=== PATIENT | male | born 1995 | race Caucasian/White ===

== ENCOUNTER 2017-04-27 14:50 | Emergency (ER) | payer OTHER ==
[2017-04-27 15:32] VITALS: BP 112/73; PULSE 95; RESP 16; TEMP 98.5; O2SAT 99
== END 2017-04-27 16:00 | disposition left against medical advice (07) ==
DX: Z53.21 Procedure and treatment not carried out due to patient leaving prior to being seen by health care provider (principal)

== ENCOUNTER 2017-06-12 08:53 | Emergency (ER) | payer OTHER ==
[2017-06-12] MEDS ORDERED: LORazepam 2 MG/ML INJ IVP ONE (09:00)
--- NOTE | 2017-06-12 09:05 | EDPHY ---
H & P Time Seen by Provider: 06/12/17 08:53 HPI/ROS: CHIEF COMPLAINT: Grand mal seizure HISTORY OF PRESENT ILLNESS: Patient is a history of epilepsy and isn't quite sure when he was diagnosed but says it was maybe in his teenage years. He has not had a seizure in several years and his neurologist Dr. Jameel Aleman in [place] has been weaning off his Depakote. His last dose of oral Depakote was about 3 weeks ago. He did not sleep well last night but was not up all night. No recent drugs or stimulants. No recent illnesses. Today he was at the [facility] service to get a flu shot when he was witnessed to have a full body tonic-clonic seizure. He arrives with some myoclonic jerks but is awake and talking. EMS said he was confused when they arrived. Did not bite his tongue and no incontinence. Denies injury. REVIEW OF SYSTEMS: Eye: no change in vision ENT: no sore throat Cardiac: no chest pain or syncope Pulmonary: no cough or SOB Abdomen: no vomiting, diarrhea, abdominal pain Musculoskeletal: no back pain Skin: no rash Neuro: no headache Constitutional: no fever : no urinary symptoms A comprehensive 10 point review of systems is otherwise negative aside from elements mentioned in the history of present illness. PAST MEDICAL HISTORY: Epilepsy as above Social history: Denies cocaine or amphetamines, nonsmoker General Appearance: Alert and conversant, cooperative. Eyes: No scleral icterus. No tongue laceration or abrasion ENT, Mouth: Normal mucous membranes. Respiratory: Normal respiratory effort, breath sounds equal, lungs are clear to auscultation. Cardiovascular: Regular rate and rhythm. Gastrointestinal: Abdomen is soft and non tender. Neurological: Alert and oriented x3. Normally conversant. Face symmetric, normal movement and sensation in all extremities. He does have some myoclonic jerking especially in his upper extremities. Skin: Warm and dry, no rashes. Musculoskeletal: No peripheral edema and no joint swelling. No extremity bony tenderness, no spinal tenderness, no stiff neck. Psychiatric: Not agitated. Emergency Department course/MDM: Ativan 1 mg IV, call is placed to his neurologist in [place]. 910: Discussed Dr. Louis for Ash, we reviewed his presentation and she reviewed his chart. She recommends restarting Depakote ER 500 mg orally q.day and will talk to his neurologist this week. He has Depakote ER 500 mg tablets at home. She recommends loading him with 20 milligrams/kilos IV of Depakote in the ER. Ambulatory after Depakote loading. Warned no driving until cleared by his neurologist. Smoking Status: Never smoked Constitutional: Initial Vital Signs Temperature (C) 37.2 C 06/12/17 08:56 Heart Rate 122 H 06/12/17 08:56 Respiratory Rate 14 06/12/17 08:56 Blood Pressure 134/76 H 06/12/17 08:56 O2 Sat (%) 98 06/12/17 08:56 O2 Delivery Mode Room Air Allergies/Adverse Reactions: No Known Allergies Allergy (Unverified 06/12/17 08:59) Home Medications: Medication Instructions Recorded Depakote ER 250 MG (*) 04/27/17 Medical Decision Making - Diagnostics EKG Interpretation: 12-lead EKG interpreted by me; official reading is in trace master. My interpretation is sinus tachycardia rate 127 with left posterior fascicular block. Differential Diagnosis: Differential diagnosis considered for a seizure including but not limited to electrolyte abnormality, alcohol withdrawal, medication noncompliance, head injury, and breakthrough seizure. - Data Points Laboratory Results: Laboratory Results 06/12/17 08:55 06/12/17 08:55 06/12/17 06/12/17 08:55 08:55 WBC 7.34 10^3/uL 10^3/uL (3.80-9.50) RBC 5.24 10^6/uL 10^6/uL (4.40-6.38) Hgb 15.7 g/dL g/dL (13.7-17.5) Hct 44.8 % % (40.0-51.0) MCV 85.5 fL fL (81.5-99.8) MCH 30.0 pg pg (27.9-34.1) MCHC 35.0 g/dL g/dL (32.4-36.7) RDW 12.5 % % (11.5-15.2) Plt Count 348 10^3/uL 10^3/uL (150-400) MPV 9.1 fL fL (8.7-11.7) Neut % (Auto) 39.5 % % (39.3-74.2) Lymph % (Auto) 50.7 % H % (15.0-45.0) [place] % (Auto) 7.6 % % (4.5-13.0) Eos % (Auto) 1.4 % % (0.6-7.6) Baso % (Auto) 0.5 % % (0.3-1.7) Nucleat RBC Rel Count 0.0 % % (0.0-0.2) Absolute Neuts (auto) 2.90 10^3/uL 10^3/uL (1.70-6.50) Absolute Lymphs (auto) 3.72 10^3/uL H 10^3/uL (1.00-3.00) Absolute Monos (auto) 0.56 10^3/uL 10^3/uL (0.30-0.80) Absolute Eos (auto) 0.10 10^3/uL 10^3/uL (0.03-0.40) Absolute Basos (auto) 0.04 10^3/uL 10^3/uL (0.02-0.10) Absolute Nucleated RBC 0.00 10^3/uL 10^3/uL (0-0.01) Immature Gran % 0.3 % % (0.0-1.1) Immature Gran # 0.02 10^3/uL 10^3/uL (0.00-0.10) Sodium 144 mEq/L mEq/L (134-144) Potassium 3.9 mEq/L mEq/L (3.5-5.2) Chloride 104 mEq/L mEq/L (97-110) Carbon Dioxide 16 mEq/l L mEq/l (22-31) Anion Gap 24 mEq/L H mEq/L (8-16) BUN 16 mg/dL mg/dL (7-23) Creatinine 1.0 mg/dL mg/dL (0.7-1.3) Estimated GFR > 60 Glucose 96 mg/dL mg/dL (70-100) Calcium 9.4 mg/dL mg/dL (8.5-10.4) Medications Given: Discontinued Medications Valproate Sodium 1,200 mg/ (Dextrose) 62 mls @ 55 mls/hr IV EDNOW ONE Stop: 06/12/17 10:21 Last Admin: 06/12/17 10:18 Dose: 62 mls Lorazepam (Ativan Injection) 1 mg IVP EDNOW ONE Stop: 06/12/17 09:01 Last Admin: 06/12/17 09:04 Dose: 1 mg Departure - Departure Disposition: Home, Routine, Self-Care Clinical Impression: Seizure disorder Condition: Good Instructions: Epilepsy (ED) Additional Instructions: Restart your Depakote 500 mg extended release orally once per day, 1st dose tonight. No driving. Call your neurologist today or tomorrow to discuss Depakote dosing, and when to increase it in the next couple of days. Referrals: Patient,NotPresent [Unknown] - As per Instructions (Call your neurologist Dr. Jameel Aleman today to arrange followup this week.) Stand Alone Forms: School Excuse
--- NOTE | 2017-06-12 09:10 | CPEKG ---
Heart Rate: 127 RR Interval: 472 P-R Interval: 91 QRSD Interval: 86 QT Interval: 332 QTC Interval: 483 P [place]: 0 QRS [place]: 117 T Wave [place]: 11 EKG Severity - ABNORMAL ECG - EKG Impression: SINUS TACHYCARDIA EKG Impression: LEFT POSTERIOR FASCICULAR BLOCK EKG Impression: BORDERLINE PROLONGED QT INTERVAL Electronically Signed By: Kane Lockett 12-Jun-2017 09:32:16
[2017-06-12] MEDS ORDERED: VALPROATE SODIUM IV ONE (09:14)
[2017-06-12] MEDS ORDERED: D5W IV ONE (09:14)
[2017-06-12 09:20] LABS: PLATELET COUNT 348 10^3/uL (150-400)
[2017-06-12 11:58] VITALS: BP 94/84; PULSE 107; RESP 14; O2SAT 96
[2017-06-12 12:05] VITALS: TEMP 98.8
== END 2017-06-12 12:05 | disposition home or self-care (01) ==
LOC: EDUNIT#
DX: G40.909 Epilepsy, unspecified, not intractable, without status epilepticus (principal)
CPT/HCPCS: 96365; J2060

== ENCOUNTER 2017-06-18 12:59 | Emergency (ER) | payer OTHER ==
[2017-06-18] MEDS ORDERED: NS 1,000 ML IV ONE (13:19)
[2017-06-18] MEDS ORDERED: levETIRAcetam 1,000 MG in NS 100 ML IV ONE (13:21)
[2017-06-18 13:27] LABS: PLATELET COUNT 334 10^3/uL (150-400)
[2017-06-18] MEDS ORDERED: ONDANSETRON 4 MG/2 ML VIAL IVP ONE (13:37)
--- NOTE | 2017-06-18 13:38 | EDPHY ---
H & P Time Seen by Provider: 06/18/17 13:13 HPI/ROS: HPI Seizure, facial injuries. 22-year-old male by ambulance. This patient has a history of generalized tonic- clonic seizures. He has had seizures since the age of 16. He has been on Depakote. He reports he has not had seizures in the last 6 months and his neurologist has weaned him off his Depakote. He is not taking Depakote about a month. This morning he had a tonic-clonic seizure. He then took a reported 2000 mg of Depakote extended-release. Then prior to arrival he had another tonic-clonic seizure fell and hit his face on the floor sustaining a left upper lip laceration any dental injury. ROS: Constitutional: No fever, no chills. No weakness. He feels foggy in the head. Eyes: No discharge. No changes in vision. ENT: No sore throat. No nasal congestion or rhinorrhea. Respiratory: No cough. No shortness of breath. Cardiac: No chest pain, no palpitations. Gastrointestinal: No abdominal pain, no vomiting, no diarrhea. Genitourinary: No hematuria. No dysuria or increased frequency with urination. Musculoskeletal: No back pain. No neck pain. No myalgias or arthralgias. Skin: No rashes. Facial laceration. Neurological: No headache. No focal weakness or altered sensation. As above. Past medical history: Seizure disorder. As above. [facility] has not worked for him in the past. He has a neurologist named Dr. Ash mcgee in [place]. Review of the patient's medical records indicates that he was seen in our emergency department for seizure on June 12. Dr. Lockett the attending emergency physician who saw him here consulted with his neurologist and was instructed to start the patient on a Depakote loading dose regiment at 1000 mg twice daily for 3 days followed by 1500 mg twice daily for 3 days followed by 2000 mg twice daily for 3 days and then a 1000 mg daily. Social history: Nonsmoker. Drinks alcohol socially. Here with his girlfriend. Physical Exam: General Appearance: Alert, he does not appear in distress. This patient is responding to questions appropriately and in full sentences. This patient appears well-hydrated and well-nourished. Eyes: Pupils equal and round no pallor or injection. No lid edema, erythema or injection. No nystagmus. No photophobia. ENT, Mouth: Mucous membranes are moist. The pharyngeal tissues are unremarkable. No edema or swelling. No asymmetry suggestive of abscess. No erythema or exudates. No tongue lacerations. He has a full-thickness left upper lip laceration. He has a chip to the left upper lateral incisor exposure of the dentin is noted. There is a retainer wire that protrudes from behind his left upper central incisor. Respiratory: There are no retractions, lungs are clear to auscultation with good air movement bilaterally. Cardiovascular: Regular rate and rhythm. No murmur. Gastrointestinal: Abdomen is soft and nontender, no masses, bowel sounds normal. No focal tenderness at McBurney's point. No Guerrero sign. Neurological: Motor sensory function is grossly intact. Cranial nerves are normal. Skin: Warm and dry, no rashes. Musculoskeletal: Neck is supple and nontender. No midline cervical, thoracic, lumbar tenderness on palpation. Extremities are symmetrical. All joints range without pain or impingement. Psychiatric: No agitation. No depression. Database: EKG: Imaging: CT scan of head without contrast: Negative. Results were discussed with staff radiologist. Procedures: Please see wound care noted dental care note by physician learning and development assistant Bryn Joshi. Emergency department course: IV placed. He was placed on a monitor. His vital signs have been reviewed and are normal. His girlfriend is present in the room. 2:00 p.m., I spoke with the patient's neurologist Dr. Richards, she advised that we start the patient on Depakote 2000 mg daily in the emergency department to get his levels up to therapeutic quickly. Patient reports that he has been taking 500 mg of extended release Depakote twice daily. He reports that he was compliant with his loading dose regiment as described above. 2:10 p.m., patient re-evaluated. Resting comfortably at this time. Repeat neurologic Assessment is nonfocal. 2:30 p.m., patient given 2000 mg of oral Depakote extended released as advised by neurologist Dr. Richards above. 2:45 p.m., patient re-evaluated. Repeat neurologic Assessment is nonfocal. I discussed my conversation with neurologist Dr. Richards whom he knows. I discussed plan to continue him on 2000 mg of extended release Depakote daily. He is to follow up with his neurologist for re-evaluation and further management of his seizures this week. I will also provide him a referral to 1 of our local neurologist as he lives in [place] currently. He feels comfortable with this plan. Return to emergency department precautions were reviewed with him and his girlfriend. All of his questions were answered. He was discharged in good condition with his girlfriend who is driving. Differential Diagnosis: The differential diagnosis on this patient includes but is not limited to breakthrough seizure, history of seizure disorder, lip laceration. Traumatic brain injury, cervical spine injury, other significant traumatic injury the noted unlikely. This represents a partial list of diagnoses considered. These considerations are based on history, physical exam, past history, reassessment and diagnostic testing. Smoking Status: Never smoked Constitutional: Initial Vital Signs Temperature (C) 36.9 C 06/18/17 13:12 Heart Rate 93 06/18/17 13:12 Respiratory Rate 16 06/18/17 13:12 Blood Pressure 127/77 H 06/18/17 13:12 O2 Sat (%) 98 06/18/17 13:12 O2 Delivery Mode Room Air Allergies/Adverse Reactions: No Known Allergies Allergy (Unverified 06/12/17 08:59) Home Medications: Medication Instructions Recorded Depakote ER 250 MG (*) 04/27/17 Medical Decision Making - Diagnostics Imaging Results: Imaging Impressions Head CT 06/18/17 13:19 Impression: Normal. Results called and discussed with Chelsea Wei MD at 06/18/2017 14: 05. - Data Points Laboratory Results: Laboratory Results 06/18/17 Unknown 06/18/17 Unknown 06/18/17 06/18/17 Unknown Unknown WBC 5.86 10^3/uL 10^3/uL (3.80-9.50) RBC 5.39 10^6/uL 10^6/uL (4.40-6.38) Hgb 16.1 g/dL g/dL (13.7-17.5) Hct 46.0 % % (40.0-51.0) MCV 85.3 fL fL (81.5-99.8) MCH 29.9 pg pg (27.9-34.1) MCHC 35.0 g/dL g/dL (32.4-36.7) RDW 12.2 % % (11.5-15.2) Plt Count 334 10^3/uL 10^3/uL (150-400) MPV 9.3 fL fL (8.7-11.7) Neut % (Auto) 61.1 % % (39.3-74.2) Lymph % (Auto) 31.4 % % (15.0-45.0) [place] % (Auto) 6.5 % % (4.5-13.0) Eos % (Auto) 0.3 % L % (0.6-7.6) Baso % (Auto) 0.5 % % (0.3-1.7) Nucleat RBC Rel Count 0.0 % % (0.0-0.2) Absolute Neuts (auto) 3.58 10^3/uL 10^3/uL (1.70-6.50) Absolute Lymphs (auto) 1.84 10^3/uL 10^3/uL (1.00-3.00) Absolute Monos (auto) 0.38 10^3/uL 10^3/uL (0.30-0.80) Absolute Eos (auto) 0.02 10^3/uL L 10^3/uL (0.03-0.40) Absolute Basos (auto) 0.03 10^3/uL 10^3/uL (0.02-0.10) Absolute Nucleated RBC 0.00 10^3/uL 10^3/uL (0-0.01) Immature Gran % 0.2 % % (0.0-1.1) Immature Gran # 0.01 10^3/uL 10^3/uL (0.00-0.10) Sodium 140 mEq/L mEq/L (134-144) Potassium 4.4 mEq/L mEq/L (3.5-5.2) Chloride 101 mEq/L mEq/L (97-110) Carbon Dioxide 22 mEq/l mEq/l (22-31) Anion Gap 17 mEq/L H mEq/L (8-16) BUN 16 mg/dL mg/dL (7-23) Creatinine 1.1 mg/dL mg/dL (0.7-1.3) Estimated GFR > 60 Glucose 114 mg/dL H mg/dL (70-100) Calcium 9.7 mg/dL mg/dL (8.5-10.4) Valproic Acid 56.0 mcg/mL mcg/mL (50.0-150.0) Medications Given: Discontinued Medications Sodium Chloride (Ns) 1,000 mls @ 0 mls/hr IV ONCE ONE; Wide Open PRN Reason: Protocol Stop: 06/18/17 13:20 Last Admin: 06/18/17 13:40 Dose: 1,000 mls Ondansetron HCl (Zofran) 4 mg IVP EDNOW ONE Stop: 06/18/17 13:38 Last Admin: 06/18/17 13:41 Dose: 4 mg Departure - Departure Disposition: Home, Routine, Self-Care Clinical Impression: Seizure, Seizure disorder, Lip laceration, Dental injury Condition: Good Instructions: Acute Dental Trauma (ED), Facial Laceration (ED) Additional Instructions: Read and follow provided instructions. Follow-up with your neurologist or with Dr. Nima Fowler or 1 of his partners here in [place] for re-evaluation and ongoing management of your Depakote dosing and seizures. Call the office of Dr. Fowler this afternoon for appointment time. Take medication as prescribed. You are to take 2000 mg of extended release Depakote once daily in the morning until your seen by your neurologist. Return to the emergency department for seizure or other serious concerns. No driving or operating heavy machinery until cleared by Neurology. You had absorbable sutures placed. These dissolve on their own. Return to the emergency department to have them removed if they are not fully that dissolved in 7 days. You have a chip involving your left upper lateral incisor. We put a protective coating on this tooth. You should see a dentist to have it fixed permanently. Referrals: Patient,NotPresent [Unknown] - As per Instructions
[2017-06-18] MEDS ORDERED: DIVALPROEX ER 500 MG TAB PO ONE (14:31)
[2017-06-18] MEDS ORDERED: SKIN ADHESIVE (DERMABOND) 1 EACH TP ONE (14:36)
[2017-06-18] MEDS ORDERED: ACETAMINOPHEN 325 MG TAB PO ONE (15:55)
[2017-06-18 16:06] VITALS: BP 148/71; PULSE 92; RESP 18; TEMP 98.4; O2SAT 100
== END 2017-06-18 16:04 | disposition home or self-care (01) ==
LOC: EDUNIT#
DX: S01.511A Laceration without foreign body of lip, initial encounter (principal); G40.909 Epilepsy, unspecified, not intractable, without status epilepticus; W01.198A Fall on same level from slipping, tripping and stumbling with subsequent striking against other object, initial encounter
CPT/HCPCS: 96374; J1953; J2405

== ENCOUNTER 2018-08-27 09:33 | Emergency (ER) | payer OTHER ==
--- NOTE | 2018-08-27 10:04 | EDPHY ---
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 The patient was in the car on the way to a pharmacy to bean picker Midazolam as he felt an aura coming on. The patient then had a seizure in the car. He is currently having involuntary jerking but does not feel like he is going to have a seizure again. He typically does not have a large amount of jerking prior to having a seizure. He has been taking Depakote as prescribed and denies ever taking the Midazolam in the past. He denies recent alcohol consumption or sleep deprivation. Denies recent tobacco or marijuana use. No fever, chills, chest pain, shortness of breath, palpitations, vomiting, diarrhea, urinary complaints, headache, lightheadedness. REVIEW OF SYSTEMS: Aside from elements discussed in the HPI, a comprehensive 10-point review of systems was reviewed and is negative. PAST MEDICAL HISTORY: Juvenile myoclonic seizures (primary neurologist is at [facility]) SOCIAL HISTORY: Student at , originally from [place] VITAL SIGNS: Reviewed by me GENERAL: Well-developed, well-nourished, resting comfortably in no respiratory distress. HEENT: Atraumatic. Eyes: No icterus, no injection. Mouth: moist mucous membranes. No erythema or lesions. Neck: supple with no adenopathy. LUNGS: Clear to auscultation bilaterally, no wheezes, rhonchi or rales. CARDIAC: Tachycardic, no rubs, murmurs or gallops. ABDOMEN: Soft, nontender, nondistended, bowel sounds normal. BACK: No CVA tenderness. EXTREMITIES: No trauma. No edema. Range of motion is normal throughout. NEURO: Alert, oriented, and conversant. Persistent myoclonic jerks of arms and jaw line. SKIN: Warm and dry, no rash. PSYCHIATRIC: Normal mentation, no agitation. Portions of this note were transcribed by a medical delivery driver. I personally performed a history, physical exam, medical decision making, and confirmed accuracy of information the transcribed note. 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 On exam he is having persistent myoclonic jerks of his arms and jaw line. He is alert, oriented and conversant. 1mg IV Ativan and 1L IV NS administered. 1210: Reassessed patient, he is feeling better and no longer having jerking movements. I will consult with his neurologist at [facility]. 1242: I consulted with Dr. Aleman, the patient's neurologist, regarding this patient. This patient is safe to be discharged home as long has he fills his Midazolam and follows up with Dr. Aleman. 1305: Reassessed patient and discussed my consult with Dr. Aleman. Return precautions provided; patient is comfortable with this plan. - Data Points Laboratory Results: Laboratory Results 08/27/18 09:35 08/27/18 09:35 Medications Given: Discontinued Medications Sodium Chloride (Ns) 1,000 mls @ 0 mls/hr IV ONCE ONE; Wide Open PRN Reason: Protocol Stop: 08/27/18 10:24 Last Admin: 08/27/18 10:31 Dose: 1,000 mls Lorazepam (Ativan Injection) 1 mg IVP EDNOW ONE Stop: 08/27/18 10:15 Last Admin: 08/27/18 10:18 Dose: 1 mg General Time Seen by Provider: 08/27/18 09:59 Initial Vital Signs: Initial Vital Signs Temperature (C) 37 C 08/27/18 09:35 Heart Rate 122 H 08/27/18 09:35 Respiratory Rate 20 08/27/18 09:35 Blood Pressure 151/84 H 08/27/18 09:35 O2 Sat (%) 95 08/27/18 09:35 O2 Delivery Mode Room Air Allergies/Adverse Reactions: No Known Allergies Allergy (Unverified 06/12/17 08:59) Home Medications: Medication Instructions Recorded Depakote ER 250 MG (*) 04/27/17 MIDAZOLAM 5 MG/ML ISECURE SYR 08/27/18 Departure - Departure Disposition: Home, Routine, Self-Care Clinical Impression: Seizure disorder Condition: Good Instructions: Juvenile Myoclonic Epilepsy (ED) Additional Instructions: Fill the Midazolam. Take the Midazolam if you feel like you are going to have a seizure. Follow up with your neurologist within the next week. Return to the Emergency Department for severe headache, vomiting, vision changes , confusion, fever or other concerns. Referrals: NONE *PRIMARY CARE P,. [Primary Care Provider] - As per Instructions Report Scribed for: Lilia Oscar Report Scribed by: Raeann Solis Date of Report: 08/27/18 Time of Report: 10:04
[2018-08-27] MEDS ORDERED: LORazepam 2 MG/ML INJ IVP ONE (10:14)
[2018-08-27] MEDS ORDERED: NS 1,000 ML IV ONE (10:23)
[2018-08-27 10:28] LABS: PLATELET COUNT 319 10^3/uL (150-400)
[2018-08-27 13:44] VITALS: BP 129/73
== END 2018-08-27 13:44 | disposition home or self-care (01) ==
DX: G40.909 Epilepsy, unspecified, not intractable, without status epilepticus (principal); E86.9 Volume depletion, unspecified
CPT/HCPCS: 80305; 96374; J2060